=== PATIENT | female | born 1945 | race Caucasian/White ===

== ENCOUNTER 2018-12-16 16:32 | Observation (INO) | payer MEDICARE, MEDICAID ==
[~2018-12-16] VITALS: Ht 154.9 cm; Wt 85.1 kg
[2018-12-16] MEDS ORDERED: PANTOPRAZOLE 40 MG IV IVPush ONE (17:00)
[2018-12-16] MEDS ORDERED: PLEASE ENTER HEIGHT AND WEIGHT MC SCH (17:00)
[2018-12-16] MEDS ORDERED: PLEASE ENTER ALLERGIES MC SCH (17:00)
[2018-12-16] MEDS ORDERED: SODIUM CHLORIDE FLUSH 10ML SYR IVF ONE (17:00)
[2018-12-16 17:16] LABS: MEAN CORPUSCULAR HEMOGLOBIN 29.2 pg (27.0-34.8); MEAN CORPUSCULAR HGB CONC 32.6 g/dL (32.4-35.8); MEAN CORPUSCULAR VOLUME 89.6 fL (80-100); MEAN PLATELET VOLUME 10.8 fL (7.4-10.4); PLATELET COUNT 181 x10^3/uL (130-400); RED BLOOD COUNT 5.33 x10^6/uL (3.82-5.3); RED CELL DISTRIBUTION WIDTH 14.1 % (9.6-15.2)
[2018-12-16 17:22] LABS: INTERNATIONAL NORMALIZED RATIO 0.96 (0.93-1.1); PROTHROMBIN TIME 10.2 Seconds (9.6-11.5)
[2018-12-16 17:24] LABS: ALANINE AMINOTRANSFERASE 18 U/L (12-78); ALBUMIN 3.6 g/dL (3.4-5.0); ANION GAP 7 mmol/L (5-15); CALCIUM 8.6 mg/dL (8.5-10.1); CHLORIDE 110 mmol/L (98-107); CREATININE 1.17 mg/dL (0.55-1.02)
[2018-12-16 17:26] LABS: ALKALINE PHOSPHATASE 84 U/L (45-117); BILIRUBIN,TOTAL 0.6 mg/dL (0.2-1.0); TOTAL PROTEIN 7.7 g/dL (6.4-8.2)
[2018-12-16 17:32] LABS: BASOPHILS # (AUTO) 0.01 x10^3/uL (0-0.1); BASOPHILS % (AUTO) 0 % (0-1); EOSINOPHILS # (AUTO) 0.03 x10^3/uL (0-0.4); EOSINOPHILS % (AUTO) 0 % (1-7); LYMPHOCYTES # (AUTO) 0.92 x10^3/uL (1-3.4); LYMPHOCYTES % (AUTO) 7 % (22-44); MD SCAN; MONOCYTES # (AUTO) 0.65 x10^3/uL (0.2-0.8); MONOCYTES % (AUTO) 5 % (2-9); NEUTROPHILS # (AUTO) 12.65 x10^3/uL (1.8-6.8); NEUTROPHILS % (AUTO) 89 % (42-75)
--- NOTE | 2018-12-16 17:45 | NUR ---
assumed care of pt. report from break MARLEEN Cortez. pt here for R/O GI bleed. pt is s/p CVA. Diego at bedside attempting to place US guided IV. no family at bedside
[2018-12-16] MEDS ORDERED: PANTOPRAZOLE 40 MG IV ONE (18:09)
--- NOTE | 2018-12-16 18:25 | NUR ---
pt to RAD
[2018-12-16] MEDS ORDERED: OMNIPAQUE 350 MG/ML, 100ML BOTTLE ONE (18:35)
--- NOTE | 2018-12-16 19:26 | NUR ---
pt resting quietly. pt to be admitted
[2018-12-16] MEDS ORDERED: SODIUM CHLORIDE FLUSH 10ML SYR IVF PRN (19:30)
--- NOTE | 2018-12-16 20:02 | NUR ---
pt was incontinent of stool. pt has been cleaned. fanny care given. skin CDI. pt positioning for comfort and lights dimmed. report called to kika HAWLEY. pt has no family at bedside
--- NOTE | 2018-12-16 20:09 | NUR ---
hospitalist FORENSIC TOXICOLOGIST at bedside to eval for admit
--- NOTE | 2018-12-16 20:16 | NUR ---
oral care and oral swabs given for comfort
[2018-12-16] MEDS ORDERED: TEMAZEPAM 15 MG CAPSULE PO PRN (20:30)
[2018-12-16] MEDS ORDERED: ONDANSETRON ODT 4 MG PO PRN (20:30)
[2018-12-16] MEDS ORDERED: GABAPENTIN 300 MG CAPSULE PO PRN (20:30)
[2018-12-16] MEDS ORDERED: BISACODYL 10 MG SUPP PR PRN (20:30)
[2018-12-16] MEDS ORDERED: hydrALAzine 20 MG/ML, 1ML IVPush PRN (20:30)
[2018-12-16 20:31] VITALS: BP 137/75
[2018-12-17] MEDS ORDERED: POLY15DR35 EACHEYE (00:06)
[2018-12-17] MEDS ORDERED: LISI-420 PO (00:09)
[2018-12-17] MEDS ORDERED: ACET325S PO (00:20)
[2018-12-17] MEDS ORDERED: OMEP20CA14 PO (00:20)
[2018-12-17] MEDS ORDERED: MINE3.5O4 OP (00:24)
[2018-12-17] MEDS ORDERED: ALBU18HF INH (00:29)
[2018-12-17 00:53] VITALS: BP 148/101
[2018-12-17] MEDS ORDERED: ARTIFICIAL TEARS 15 DROP/ML BOTTLE EACHEYE PRN (01:30)
[2018-12-17] MEDS ORDERED: ARTIFICIAL TEARS OINT 3.5 GM OP PRN (01:30)
[2018-12-17] MEDS ORDERED: ALBUTEROL SULFATE 2.5 MG/3 ML NPPB PRN (02:00)
[2018-12-17 05:44] LABS: BASOPHILS % (AUTO) 0 % (0-1); EOSINOPHILS # (AUTO) 0.21 x10^3/uL (0-0.4); EOSINOPHILS % (AUTO) 3 % (1-7); LYMPHOCYTES # (AUTO) 1.26 x10^3/uL (1-3.4); LYMPHOCYTES % (AUTO) 16 % (22-44); MD NO; MEAN CORPUSCULAR HEMOGLOBIN 29.3 pg (27.0-34.8); MEAN CORPUSCULAR HGB CONC 32.4 g/dL (32.4-35.8); MEAN CORPUSCULAR VOLUME 90.4 fL (80-100); MEAN PLATELET VOLUME 11.1 fL (7.4-10.4); MONOCYTES # (AUTO) 0.39 x10^3/uL (0.2-0.8); MONOCYTES % (AUTO) 5 % (2-9); NEUTROPHILS % (AUTO) 76 % (42-75); PLATELET COUNT 111 x10^3/uL (130-400); RED BLOOD COUNT 4.82 x10^6/uL (3.82-5.3); RED CELL DISTRIBUTION WIDTH 14.6 % (9.6-15.2)
[2018-12-17 05:50] LABS: ANION GAP 6 mmol/L (5-15); CHLORIDE 113 mmol/L (98-107); CREATININE 1.01 mg/dL (0.55-1.02)
[2018-12-17] MEDS ORDERED: OMEPRAZOLE 20 MG CAPSULE.DR PO SCH (06:00)
[2018-12-17 07:00] VITALS: BP 151/85
[2018-12-17] MEDS ORDERED: LISINOPRIL 20 MG TABLET PO SCH (09:00)
[2018-12-17] MEDS ORDERED: LISINOPRIL 5 MG TABLET PO SCH (09:30)
[2018-12-17 10:15] VITALS: BP 139/82
[2018-12-17] MEDS ORDERED: LACTULOSE 3.3 GM/5 ML ORAL.SOL RC ONE (12:30)
[2018-12-17 15:14] VITALS: BP 150/95
[2018-12-17] MEDS ORDERED: POLY17PO5 PO (16:06)
[2018-12-17] MEDS ORDERED: RIVA20TA PO (16:15)
[2018-12-17] MEDS ORDERED: SIMV20TA3 PO (16:16)
[2018-12-17] MEDS ORDERED: METO25TA35 PO (16:39)
[2018-12-17 17:54] VITALS: BP 155/82
[2018-12-17] MEDS ORDERED: METOPROLOL TARTRATE 25 MG TABLET PO SCH (18:00)
[2018-12-17 18:16] VITALS: BP 148/104
== END 2018-12-17 18:30 ==
LOC: ED 19:41 → INTOOBSV 20:07 → UNDOADMOB 20:07 → EDIP 20:07 → 4NOR 20:21 → EDIP 20:21 → 2N 20:25 → UNDODISOB 12-17 18:36
PROVIDERS: ADMIT Emergency Medicine; ATTEND Emergency Medicine
DX: K56.609 Unspecified intestinal obstruction, unspecified as to partial versus complete obstruction (principal); D72.829 Elevated white blood cell count, unspecified; I48.91 Unspecified atrial fibrillation; I10 Essential (primary) hypertension; D68.69 Other thrombophilia; K56.41 Fecal impaction; R00.0 Tachycardia, unspecified
CPT/HCPCS: 36415; 74021; 74177; 80048; 80053; 83605; 83690; 83735; 84100; 85025; 85610; 85730; 93005; 96374; 99284; C9113; G0378; Q9967